=== PATIENT | female | born 1980 | race Caucasian/White ===

== ENCOUNTER 2017-06-15 21:18 | Emergency (ER) | payer SELFPAY ==
[~2017-06-15] VITALS: Ht 167.6 cm; Wt 67.5 kg
[~2017-06-15 21:18] MED LIST: MOTR200T PO
[2017-06-15 21:22] VITALS: BP 115/76; PULSE 95; RESP 16; TEMP 98.4; O2SAT 97
--- NOTE | 2017-06-15 22:28 | PD ---
HPI Chief Complaint: Abdominal Pain Time Seen by Provider: 21:50 Travel History International Travel<30 days: No Contact w/Intl Traveler<30days: No Traveled to known affect area: No History of Present Illness HPI 36 years old female complains of low abdominal pelvic pain vaginal discharge. Patient states that the symptoms started 3 days ago. Patient states that she was seen at [facility] in [place] and given prescription for Flagyl to be taken once a day for 7 days. Patient states that she had persistent low abdominal pelvic pain despite the medication. Patient states that she has low- grade fever at home. Patient denies any headache. Patient denies any chest pain or shortness of breath. Patient denies any nausea vomiting diarrhea. Patient states the pain is cramping pain localized to lower abdomen pelvic area. Patient denies any pain radiation. Patient denies any chance of being . PFSH Past Medical History Anxiety: Yes Diminished Hearing: No ?: Not LMP: 06/01/17 : 1 Social History Alcohol Use: No Tobacco Use: No Substance Use: No Allergies-Medications (Allergen,Severity, Reaction): Coded Allergies: No Known Allergies (Verified , 02/09/11) Reported Meds & Prescriptions Reported Meds & Active Scripts Active Review of Systems General / Constitutional: No: Fever Eyes: No: Visual changes HENT: No: Headaches Cardiovascular: No: Chest Pain or Discomfort Respiratory: No: Shortness of Breath Gastrointestinal: Positive: Abdominal Pain Genitourinary: Positive: Pelvic Pain, Discharge, No: Dysuria Musculoskeletal: No: Pain Skin: No Rash Neurologic: No: Weakness Psychiatric: No: Depression Endocrine: No: Polydipsia Hematologic/Lymphatic: No: Easy Bruising Physical Exam Narrative GENERAL: Well-nourished, well-developed patient. SKIN: Focused skin assessment warm/dry. HEAD: Normocephalic. EYES: No scleral icterus. No injection or drainage. NECK: Supple, trachea midline. No JVD or lymphadenopathy. CARDIOVASCULAR: Regular rate and rhythm without murmurs, gallops, or rubs. RESPIRATORY: Breath sounds equal bilaterally. No accessory muscle use. GASTROINTESTINAL: Abdomen soft, nondistended. Patient had mild tenderness lower abdomen suprapubic area. No rebound tenderness. No mass. MUSCULOSKELETAL: No cyanosis, or edema. BACK: Nontender without obvious deformity. No CVA tenderness. [employer] exam: Data Data Last Documented VS Vital Signs Date Time Temp Pulse Resp B/P Pulse Ox O2 Delivery O2 Flow Rate FiO2 06/15/17 23:10 99 Room Air 06/15/17 21:22 98.4 95 16 115/76 Orders Gc And Chlamydia Pcr (06/15/17 22:21) Wet Prep Profile (06/15/17 22:21) Urinalysis - C+S If Indicated (06/15/17 22:21) Ed Urine Pregnancytest Poc (06/15/17 22:21) Beta Hcg (Quant/Titer) (06/15/17 23:08) Complete Blood Count With Diff (06/15/17 23:08) Comprehensive Metabolic Panel (06/15/17 23:08) Lipase (06/15/17 23:08) Prothrombin Time / Inr (Pt) (06/15/17 23:08) Act Partial Throm Time (Ptt) (06/15/17 23:08) Ct Abd/Pel W Iv Contrast(Rout) (06/15/17 23:08) Iv Access Insert/Monitor (06/15/17 23:08) Ecg Monitoring (06/15/17 23:08) Oximetry (06/15/17 23:08) Sodium Chloride 0.9% Flush (Ns Flush) (06/15/17 23:15) Urine Culture (06/15/17 23:01) Iohexol 350 Inj (Omnipaque 350 Inj) (06/15/17 23:58) Levofloxacin (Levaquin) (06/16/17 01:00) Labs Laboratory Tests Test 06/15/17 06/15/17 23:01 23:15 Urine Color YELLOW Urine Turbidity HAZY Urine pH 6.0 Urine Specific [place] 1.028 Urine Protein 30 mg/dL Urine Glucose (UA) NEG mg/dL Urine Ketones NEG mg/dL Urine Occult Blood TRACE Urine Nitrite NEG Urine Bilirubin NEG Urine Urobilinogen 4.0 MG/DL Urine Leukocyte Esterase MOD Urine RBC 10 /hpf Urine WBC 24 /hpf Urine Squamous Epithelial 6 /hpf Cells Urine Hyaline Casts 2 /lpf Urine Mucus FEW /lpf Microscopic Urinalysis Comment CULTURE INDICATED Clue Cells (Wet Prep) NONE SEEN Vaginal Trichomonas (Wet Prep) NONE SEEN Vaginal Yeast (Wet Prep) NONE SEEN White Blood Count 5.8 TH/MM3 Red Blood Count 4.50 MIL/MM3 Hemoglobin 12.8 GM/DL Hematocrit 37.2 % Mean Corpuscular Volume 82.6 FL Mean Corpuscular Hemoglobin 28.4 PG Mean Corpuscular Hemoglobin 34.4 % Concent Red Cell Distribution Width 13.3 % Platelet Count 217 TH/MM3 Mean Platelet Volume 7.6 FL Neutrophils (%) (Auto) 58.7 % Lymphocytes (%) (Auto) 24.5 % Monocytes (%) (Auto) 14.2 % Eosinophils (%) (Auto) 2.0 % Basophils (%) (Auto) 0.6 % Neutrophils # (Auto) 3.4 TH/MM3 Lymphocytes # (Auto) 1.4 TH/MM3 Monocytes # (Auto) 0.8 TH/MM3 Eosinophils # (Auto) 0.1 TH/MM3 Basophils # (Auto) 0.0 TH/MM3 CBC Comment DIFF FINAL Differential Comment Prothrombin Time 10.3 SEC Prothromb Time International 0.9 RATIO Ratio Activated Partial 26.1 SEC Thromboplast Time Sodium Level 139 MEQ/L Potassium Level 3.9 MEQ/L Chloride Level 106 MEQ/L Carbon Dioxide Level 24.7 MEQ/L Anion Gap 8 MEQ/L Blood Urea Nitrogen 14 MG/DL Creatinine 0.92 MG/DL Estimat Glomerular Filtration 69 ML/MIN Rate Random Glucose 95 MG/DL Calcium Level 8.2 MG/DL Total Bilirubin 0.3 MG/DL Aspartate Amino Transf 34 U/L (AST/SGOT) Alanine Aminotransferase 20 U/L (ALT/SGPT) Alkaline Phosphatase 65 U/L Total Protein 6.8 GM/DL Albumin 3.3 GM/DL Lipase 103 U/L Human Chorionic Gonadotropin, LESS THAN 1 Quant MIU/ML [facility] Medical Decision Making Medical Screen Exam Complete: Yes Emergency Medical Condition: Yes Interpretation(s) 12:[address] scan abdomen pelvis shows cervical mass. Prominent endometrial cavity. Possible pyelonephritis. Wet prep negative. Differential Diagnosis Differential diagnosis including bacterial vaginosis, candidal vaginitis, cervicitis, PID. Narrative Course 36 years old female with low abdominal pelvic pain and vaginal discharge. Levaquin 750 mg by mouth given. Diagnosis Primary Impression: Pyelonephritis Additional Impression: Mass of cervix Patient Instructions: General Instructions Additional Instructions: Take medications as directed. Follow up with atmospheric scientist for biopsy of mass of cervix. Med/Other Pt SpecificInfo: Prescription(s) given Scripts Meloxicam (Mobic)15 Mg Tab15 Mg PO DAILY #30 TAB Prov:Fahad Pablo MD 06/16/17 Hydrocodone-Acetaminophen ([place])5-325 mg Tab1 Tab PO Q6H PRN (PAIN) #30 TAB Prov:Fahad Pablo MD 06/16/17 Sulfamethoxazole-Trimethoprim (Bactrim DS)800-160 Mg Tab1 Tab PO BID #20 TAB Prov:Fahad Pablo MD 06/16/17 Disposition: 01 DISCHARGE HOME Condition: Stable Fahad Pablo MD Jun 15, 2017 22:28
[2017-06-15 23:10] VITALS: O2SAT 99
[2017-06-15] MEDS ORDERED: SODIUM CHLORIDE 0.9% FLUSH 10 ML FLUSH IV FLUSH PRN (23:15)
[2017-06-15 23:20] LABS: BLOOD, URINE TRACE (NEG); COMMENT (UR) CULTURE INDICATED; CULTURE IF INDICATED CULTURE INDICATED; GLUCOSE,URINE NEG (NEG); HYALINE CAST, URINE 2 /lpf (RARE); KETONE, URINE NEG (NEG); MUCUS URINE FEW /lpf (OCC); NITRITE,URINE NEG (NEG); SQUAMOUS EPITHELIAL CELL URINE 6 /hpf (0-5); URINE COLOR YELLOW (YELLW/STRAW)
[2017-06-15 23:23] LABS: AUTOMATED NEUTROPHIL # 3.4 TH/MM3 (1.8-7.7); BASOPHIL % 0.6 % (0.0-2.0); EOSINOPHIL # 0.1 TH/MM3 (0-0.4); HEMATOCRIT 37.2 % (35.0-46.0); HEMO FLAGS DIFF FINAL; LYMPH % 24.5 % (9.0-44.0); LYMPHOCYTE # 1.4 TH/MM3 (1.0-4.8); MEAN CELL VOLUME 82.6 FL (80.0-100.0); MEAN CORPUSCULAR HEMOGLOBIN 28.4 PG (27.0-34.0); MEAN CORPUSCULAR HGB CONC 34.4 % (32.0-36.0); MONO % 14.2 % (0.0-8.0); NEUT % 58.7 % (16.0-70.0); PLATELET COUNT 217 TH/MM3 (150-450); RED CELL DISTRIBUTION WIDTH 13.3 % (11.6-17.2); WHITE BLOOD COUNT 5.8 TH/MM3 (4.0-11.0)
[2017-06-15 23:36] LABS: APTT (PATIENT) 26.1 SEC (24.3-30.1); INTERNATIONAL NORMALIZED RATIO 0.9 RATIO; PROTHROMBIN TIME - PATIENT 10.3 SEC (9.8-11.6)
[2017-06-15 23:39] LABS: ALT (GPT) 20 U/L (10-53); ANION GAP 8 MEQ/L (5-15); AST (GOT) 34 U/L (15-37); BICARBONATE 24.7 MEQ/L (21.0-32.0); BLOOD UREA NITROGEN 14 MG/DL (7-18); CHLORIDE 106 MEQ/L (98-107); GLOMERULAR FILTRATION RATE 69 ML/MIN (>89); SODIUM (NA) 139 MEQ/L (136-145)
[2017-06-15 23:40] LABS: POTASSIUM 3.9 MEQ/L (3.5-5.1)
[2017-06-15 23:42] LABS: ALKALINE PHOSPHATASE 65 U/L (45-117); BETA HCG QUANT LESS THAN 1 MIU/ML (0-5); TOTAL BILIRUBIN ADULT 0.3 MG/DL (0.2-1.0)
[2017-06-15] MEDS ORDERED: IOHEXOL 350 MG/ML 10 ML VIAL (for RAD DIAG) IV ONE (23:58)
--- NOTE | 2017-06-16 00:35 | RADRPT ---
EXAM DATE/TIME: 06/15/2017 23:54 [place] COMPARISON: No previous studies available for comparison. INDICATIONS : Lower quadrant/pelvic pain with vaginal discharge x3 days. IV CONTRAST: 95 cc Omnipaque 350 (iohexol) IV ORAL CONTRAST: No oral contrast ingested. RADIATION DOSE: 7.16 CTDIvol (mGy) MEDICAL HISTORY : None SURGICAL HISTORY : None. ENCOUNTER: Initial ACUITY: 3 days PAIN SCALE: 8/10 LOCATION: Bilateral pelvis TECHNIQUE: Volumetric scanning of the abdomen and pelvis was performed. Using automated exposure control and ad justment of the mA and/or kV according to patient size, radiation dose was kept as low as reasonably achievable to obtain optimal diagnostic quality images. DICOM format image data is available electro nically for review and comparison. FINDINGS: LOWER LUNGS: The visualized lower lungs are clear. LIVER: Homogeneous density without lesion. There is no dilation of the biliary tree. No calcified gallston es. SPLEEN: Normal size without lesion. PANCREAS: Within normal limits. KIDNEYS: There is some and homogeneity on the reformatted images in both kidneys correlate for pyelonephritis. ADRENAL GLANDS: Within normal limits. VASCULAR: There is no aortic aneurysm. BOWEL/MESENTERY: The stomach, small bowel, and colon demonstrate no acute abnormality. There is no free intraperitone al air or fluid. ABDOMINAL WALL: Within normal limits. RETROPERITONEUM: There is no lymphadenopathy. BLADDER: No wall thickening or mass. REPRODUCTIVE: The cervix is diffusely heterogeneous and there is some prominence of the endometrial stripe. INGUINAL: There is no lymphadenopathy or hernia. MUSCULOSKELETAL: Within normal limits for patient age. CONCLUSION: Inhomogeneous cervix with a prominent endometrial cavity. Some inhomogeneous cortex bilaterally withi n the kidneys raises the possibility of pyelonephritis Festus Mendez MD on June 16, 2017 at 0:32 Board Certified Radiologist. This report was verified electronically.
[2017-06-16] MEDS ORDERED: BACT800T5 PO (00:59)
[2017-06-16] MEDS ORDERED: NORC5TAB PO (00:59)
[2017-06-16] MEDS ORDERED: MOBI15TA PO (00:59)
[2017-06-16] MEDS ORDERED: LEVOFLOXACIN 750 MG TAB PO ONE (01:00)
[2017-06-16 04:19] LABS: CHLAMYDIA PCR NOT DETECTED (NOT DETECT); NEISSERIA PCR NOT DETECTED (NOT DETECT)
== END 2017-06-16 01:36 | disposition home or self-care (01) ==
LOC: NEPD 21:18
DX: N12 Tubulo-interstitial nephritis, not specified as acute or chronic (principal); R19.09 Other intra-abdominal and pelvic swelling, mass and lump; N89.8 Other specified noninflammatory disorders of vagina; F41.9 Anxiety disorder, unspecified
CPT/HCPCS: 74177; 80053; 81001; 83690; 84702; 84703; 85025; 85610; 85730; 87086; 87210; 87491; 87591; 99285; Q9967

== ENCOUNTER 2017-10-14 09:45 | Emergency (ER) | payer SELFPAY ==
[~2017-10-14] VITALS: Ht 160 cm; Wt 65.0 kg
[~2017-10-14 09:45] MED LIST changes: +BACT800T5 PO; +MOBI15TA PO; -MOTR200T PO; +NORC5TAB PO
[2017-10-14 09:46] VITALS: BP 132/72; PULSE 84; RESP 16; TEMP 98.2; O2SAT 97
[2017-10-14 10:20] VITALS: BP 124/87; PULSE 79; RESP 18; TEMP 98.5; O2SAT 100
[2017-10-14] MEDS ORDERED: LIDOCAINE HCL 1% PF 30 ML VIAL XX ONE (11:15)
--- NOTE | 2017-10-14 11:15 | PD ---
HPI Chief Complaint: Abdominal Pain Time Seen by Provider: 10:05 Travel History International Travel<30 days: No Contact w/Intl Traveler<30days: No Traveled to known affect area: No History of Present Illness HPI The patient was seen and examined in the presence of the nurse. She complains of pelvic pain. Duration 2 days. Severity is mild to moderate. He complains of some vaginal discharge and odor. She is not . She has no nausea or vomiting and is eating fine. No alleviating factors. No exacerbating factors PFSH Past Medical History Anxiety: Yes Diminished Hearing: No Tetanus Vaccination: Unknown Influenza Vaccination: No ?: Unknown : 1 Past Surgical History Surgical History: No Previous Surgery Social History Alcohol Use: No Tobacco Use: No Substance Use: No Allergies-Medications (Allergen,Severity, Reaction): Coded Allergies: No Known Allergies (Verified Adverse Reaction, Unknown, 10/14/17) Reported Meds & Prescriptions Reported Meds & Active Scripts Active Mobic (Meloxicam) 15 Mg Tab 15 Mg PO DAILY [place] (Hydrocodone-Acetaminophen) 5-325 mg Tab 1 Tab PO Q6H PRN Bactrim DS (Sulfamethoxazole-Trimethoprim) 800-160 Mg Tab 1 Tab PO BID Review of Systems General / Constitutional: No: Fever Eyes: No: Visual changes HENT: No: Headaches Cardiovascular: No: Chest Pain or Discomfort Respiratory: No: Shortness of Breath Gastrointestinal: Positive: Abdominal Pain Genitourinary: Positive: Pelvic Pain, No: Dysuria Musculoskeletal: No: Pain Skin: No Rash Neurologic: No: Weakness Psychiatric: No: Depression Endocrine: No: Polydipsia Hematologic/Lymphatic: No: Easy Bruising Physical Exam Narrative GENERAL: Well-nourished, well-developed patient in no apparent distress. SKIN: Focused skin assessment reveals no rash and nodules. Skin is Warm and dry. HEAD: Atraumatic. Normocephalic. EYES: Pupils equal and round. No scleral icterus. No injection or drainage. ENT: No nasal bleeding or discharge. Mucous membranes pink and moist. NECK: Trachea midline. No JVD. CARDIOVASCULAR: Regular rate and rhythm. No murmur appreciated. RESPIRATORY: No accessory muscle use. Clear to auscultation. Breath sounds equal bilaterally. GASTROINTESTINAL: Abdomen soft, non-tender, nondistended. Hepatic and splenic margins not palpable. MUSCULOSKELETAL: No obvious deformities. No clubbing. No cyanosis. No edema. NEUROLOGICAL: Awake and alert. No obvious cranial nerve deficits. Motor grossly within normal limits. Normal speech. PSYCHIATRIC: Appropriate mood and affect; insight and judgment normal. Pelvic: Positive cervical motion tenderness. Some yellow discharge in the vault. No blood in the vault. No adnexal mass. Data Data Last Documented VS Vital Signs Date Time Temp Pulse Resp B/P (MAP) Pulse Ox O2 Delivery O2 Flow Rate FiO2 10/14/17 10:20 98.5 79 18 124/87 (99) 100 Room Air Orders Orders Ed Urine Pregnancytest Poc (10/14/17 11:05) Ceftriaxone Inj (Rocephin Inj) (10/14/17 11:15) Lidocaine Pf 1% Inj (Xylocaine-Mpf 1% In (10/14/17 11:15) MDM Medical Decision Making Medical Screen Exam Complete: Yes Emergency Medical Condition: Yes Medical Record Reviewed: Yes Differential Diagnosis Ectopic, PID, appendicitis Narrative Course I have reviewed the patient's electronic medical record. Urine is negative Abdomen is soft and benign and nontender Pelvic exam is consistent with PID with cervical motion tenderness and discharge. I gave her injection of Rocephin as well as week of doxycycline and some tramadol for pain relief Patient speaks both Hebrew and [place]. We offered formal translation but she declines and just wants her instructions printed in [place]. Diagnosis Primary Impression: PID (acute pelvic inflammatory disease) Additional Instructions: The patient was advised to follow up with their physician and return if they worsen. The patient was warned about potential sedation for the medications they will receive on prescription. Med/Other Pt SpecificInfo: Prescription(s) given Disposition: DISCHARGE HOME Condition: Stable Austin Aaron MD Oct 14, 2017 11:15
[2017-10-14] MEDS ORDERED: TRAM50TA PO (11:16)
[2017-10-14] MEDS ORDERED: DOXY100C PO (11:16)
[2017-10-14 12:03] VITALS: BP 119/71; TEMP 98.3
== END 2017-10-14 12:04 | disposition home or self-care (01) ==
LOC: NEPD 09:45
DX: N73.9 Female pelvic inflammatory disease, unspecified (principal); F41.9 Anxiety disorder, unspecified; Z79.899 Other long term (current) drug therapy
CPT/HCPCS: 84703; 96372; 99284; J0696